=== PATIENT | male | born 1980 | race Hispanic/Latino ===

== ENCOUNTER 2019-02-20 11:12 | Outpatient (CLI) | payer OTHER, SELFPAY ==
--- NOTE | 2019-02-20 12:07 | RAD ---
2 views chest. HISTORY: Rib fractures. PA and lateral views the chest obtained. A small right-sided pleural effusion seen. Right eighth and ninth rib fractures seen. No evidence of right-sided pneumothorax seen. IMPRESSION: right-sided pleural effusion with right eighth and ninth rib fractures.
== END 2019-02-20 11:13 | disposition home or self-care (01) ==
LOC: RAD 11:12 → EDBD 11:12 → RAD 11:13
PROVIDERS: ATTEND Nurse Practitioner Acute Care
DX: S22.41XD Multiple fractures of ribs, right side, subsequent encounter for fracture with routine healing (principal); J90 Pleural effusion, not elsewhere classified
CPT/HCPCS: 71046

== ENCOUNTER 2024-06-14 22:00 | Emergency (ER) | payer OTHER | END 2024-06-14 22:47 | disposition home or self-care (01) | LOC: ERS 22:00 | DX: M25.511 Pain in right shoulder (principal); F17.210 Nicotine dependence, cigarettes, uncomplicated | CPT/HCPCS: 99283 ==